=== PATIENT | female | born 1975 | race Caucasian/White ===

== ENCOUNTER → 2024-11-27 | Outpatient (CLI) | payer OTHER ==
--- NOTE | 2024-11-27 16:23 | CT ---
EXAMINATION TYPE: CT angio chest CT DLP: 490 mGycm, Automated exposure control for dose reduction was used. DATE OF EXAM: 11/27/2024 4:12 PM COMPARISON: None CLINICAL INDICATION:Female, 49 years old with history of R06.02; shortness of breath, breast cancer TECHNIQUE/CONTRAST: CTA scan of the thorax is performed with IV Contrast, patient injected with 100 mL of Isovue 370, pul monary embolism protocol. MIP images are created and reviewed. FINDINGS: Pulmonary Artery: There is no evidence for a filling defect within the pulmonary vasculature to sugge st acute pulmonary embolism. The pulmonary artery is of normal size. Lungs/Pleura: No evidence of focal consolidation, pleural effusion or pneumothorax. Lingular 4.9 mm s olid pulmonary nodule (series 7, image 80). Elevation of the right hemidiaphragm. Airway: Large airways are patent. Heart: Moderately enlarged. No pericardial effusion. No significant coronary artery calcifications. Vasculature: No evidence of aortic aneurysm. Left anterior chest wall Mediport catheter with distal t ip terminating in the low SVC. Four-vessel aortic arch. Mediastinum: No evidence of adenopathy. Musculoskeletal: No acute osseous abnormalities. No aggressive osseous lesion. Soft Tissues: Dystrophic calcifications within the right breast. Suspected posttreatment changes with in the right breast however no prior images are available for comparison. No pathologically enlarged axillary lymphadenopathy Lower neck: No significant findings. Upper Abdomen: Diffuse low-attenuation to the liver parenchyma.. IMPRESSION: 1. No evidence of pulmonary embolism or acute thoracic process. 2. Nonspecific lingular 4.9 mm pulmonary nodule. Correlation with any outside prior imaging is recomm ended to assess for stability. Otherwise consider optional CT chest in 12 months according to Fleisch ner criteria. 3. Suspected post treatment changes of the right breast. No comparisons available. 4. Hepatic steatosis. [facility], , 11/27/2024 4:21 PM
== END | disposition home or self-care (01) ==
LOC: RADCTMAIN 15:04
PROVIDERS: ATTEND Internal Medicine Hematology & Oncology
DX: R91.1 Solitary pulmonary nodule (principal); C50.919 Malignant neoplasm of unspecified site of unspecified female breast; K76.0 Fatty (change of) liver, not elsewhere classified
CPT/HCPCS: 71275; Q9967